=== PATIENT | female | born 1975 | race Hispanic/Latino ===

== ENCOUNTER 2016-07-14 04:47 | Emergency (ER) | payer OTHER ==
[2016-07-14 04:49] VITALS: BMI 33.6
--- NOTE | 2016-07-14 05:01 | ED PDOC ---
Arrival/HPI - General Chief Complaint: Chest Pain Time Seen by Provider: 07/14/16 04:48 Historian: Patient - History of Present Illness Narrative History of Present Illness (Text): 07/14/16 05:01 Marycarmen Huitron is a 41 year old female smoker, whose past medical history includes hypertension, hyperlipidmia, and diabetes, who presents to the Emergency department complaining of left-sided chest pain tonight. Patient describes chest pain as a heaviness/pressure-like sensation. Patient reports a family history of CAD. Patient denies any fever, chills, shortness of breath, nausea, vomiting, diarrhea, urinary symptoms, back pain, neck pain, headache, dizziness, or any other complaints. Symptom Onset: Gradual Symptom Course: Unchanged Activities at Onset: Rest, Light Context: Home Past Medical History - Provider Review Nursing Documentation Reviewed: Yes - Infectious Disease Hx of Infectious Diseases: None - Tetanus Immunization Tetanus Immunization: Unknown - Cardiac Hx Hypertension: Yes - Endocrine/Metabolic Hx Diabetes Mellitus Type 2: Yes - Psychiatric Hx Depression: Yes Hx Emotional Abuse: No Hx Physical Abuse: No Hx Substance Use: Yes - Surgical History Hx Cholecystectomy: Yes Other/Comment: abdominoplasty - Anesthesia Hx Anesthesia: Yes Hx Anesthesia Reactions: No Hx Malignant Hyperthermia: No - Suicidal Assessment Feels Threatened In Home Enviroment: No Family/Social History - Physician Review Nursing Documentation Reviewed: Yes Family/Social History: CAD/RI Smoking Status: Light Smoker < 10 Cigarettes Daily Hx Alcohol Use: No Hx Substance Use: Yes Substance used: marijuana - last used 07/13/2016 Hx Substance Use Treatment: No Allergies/Home Meds Allergies/Adverse Reactions: Allergies No Known Allergies Allergy (Verified 02/08/13 12:56) Review of Systems - Physician Review All systems were reviewed & negative as marked: Yes - Review of Systems Constitutional: Normal. absent: Fevers Eyes: Normal ENT: Normal Respiratory: Normal. absent: SOB, Cough Cardiovascular: Chest Pain Gastrointestinal: Normal. absent: Abdominal Pain, Diarrhea, Nausea, Vomiting Genitourinary Female: Normal. absent: Dysuria, Frequency, Hematuria, Urine Output Changes Musculoskeletal: Normal. absent: Back Pain, Neck Pain Skin: Normal. absent: Rash Neurological: Normal. absent: Headache, Dizziness Endocrine: Normal Hemo/Lymphatic: Normal Psychiatric: Normal Physical Exam Vital Signs Reviewed: Yes Vital Signs Temp Pulse Resp BP Pulse Ox 07/14/16 04:47 98.1 F 54 L 18 147/79 98 Temperature: Afebrile Blood Pressure: Normal Pulse: Regular Respiratory Rate: Normal Appearance: Positive for: Well-Appearing, Non-Toxic, Comfortable Pain Distress: None Mental Status: Positive for: Alert and Oriented X 3 - Systems Exam Head: Present: Atraumatic, Normocephalic Pupils: Present: PERRL Extroacular Muscles: Present: EOMI Conjunctiva: Present: Normal Mouth: Present: Moist Mucous Membranes Neck: Present: Normal Range of Motion Respiratory/Chest: Present: Clear to Auscultation, Good Air Exchange. No: Respiratory Distress, Accessory Muscle Use Cardiovascular: Present: Regular Rate and Rhythm, Normal S1, S2. No: Murmurs Abdomen: Present: Normal Bowel Sounds. No: Tenderness, Distention, Peritoneal Signs Back: Present: Normal Inspection Upper Extremity: Present: Normal Inspection. No: Cyanosis, Edema Lower Extremity: Present: Normal Inspection. No: Edema Neurological: Present: GCS=15, CN II-XII Intact, Speech Normal Skin: Present: Warm, Dry, Normal Color. No: Rashes Psychiatric: Present: Alert, Oriented x 3, Normal Insight, Normal Concentration Medical Decision Making ED Course and Treatment: 07/14/16 05:01 Impression: 41 year old female complaining of left-sided chest pain tonight. Plan: -- EKG -- Chest X-ray -- Labs, cardiac enzymes -- Aspirin -- Reassess and disposition Progress Notes: Reviewed EKG, sinus bradycardia at [address]-segment elevations or depressions, no T-wave inversions, normal intervals. 07/14/16 06:44 Reviewed radiology, Chest X-ray shows no acute processes. Case discussed with Dr. Kaye, who is aware and agrees with plan. Accepts pt in to his service. Pt will go to Telemetry observation for chest pain. Requests Dr. Bass on consult. - Lab Interpretations Lab Results: 07/14/16 05:20 07/14/16 05:20 Lab Results 07/14/16 05:20: PT 10.8, INR 1.00, APTT 27.1 07/14/16 05:20: WBC 7.7, RBC 3.94, Hgb 11.8 L, Hct 34.2 L, MCV 86.8, MCH 29.9, MCHC 34.5, RDW 12.5, Plt Count 214, MPV 11.9 H 07/14/16 05:20: Sodium 138, Potassium 4.3, Chloride 106, Carbon Dioxide 24, Anion Gap 12, BUN 8, Creatinine 0.6, Est GFR ( Amer) > 60, Est GFR (Non- Af Amer) > 60, Random Glucose 183 H, Calcium 9.4, Total Bilirubin 0.4, AST 21, ALT 29, Alkaline Phosphatase 48, Lactate Dehydrogenase 288 L, Total Creatine Kinase 38, Troponin I < 0.01, Total Protein 7.2, Albumin 4.1, Globulin 3.1, Albumin/Globulin Ratio 1.3 I have reviewed the lab results: Yes - RAD Interpretation Radiology Orders: 07/14/16 05:03 CHEST PORTABLE [RAD] Stat - EKG Interpretation Interpreted by ED Physician: Yes Type: 12 lead EKG - Medication Orders Current Medication Orders: Discontinued Medications Aspirin (Aspirin) 325 mg PO ONCE STA Stop: 07/14/16 05:05 Last Admin: 07/14/16 05:00 Dose: 325 mg - Scribe Statement The provider has reviewed the documentation as recorded by the Scribtheresa Franklin All medical record entries made by the Xochitlibtheresa were at my direction and personally dictated by me. I have reviewed the chart and agree that the record accurately reflects my personal performance of the history, physical exam, medical decision making, and the department course for this patient. I have also personally directed, reviewed, and agree with the discharge instructions and disposition. Disposition/Present on Arrival - Present on Arrival Any Indicators Present on Arrival: No History of DVT/PE: No History of Uncontrolled Diabetes: No Urinary Catheter: No History of Decub. Ulcer: No History Surgical Site Infection Following: None - Disposition Have Diagnosis and Disposition been Completed?: Yes Diagnosis: Chest pain Disposition: HOSPITALIZED Disposition Time: 06:48 Patient Plan: Observation Patient Problems: Current Active Problems Problem Status Onset Chest pain Acute Condition: STABLE Discharge Instructions (ExitCare): Chest Pain (ED) Referrals: Herman Kaye DO [Primary Care Provider] - Follow up with primary
[2016-07-14 05:31] VITALS: RESP 18; O2SAT 98
[2016-07-14 05:43] LABS: HEMATOCRIT 34.2 % (36.0-48.0); MEAN CELL VOLUME 86.8 fL (80.0-105.0); MEAN CORPUSCULAR HEMOGLOBIN 29.9 pg (25.0-35.0); MEAN CORPUSCULAR HGB CONC 34.5 g/dl (31.0-37.0); MEAN PLATELET VOLUME 11.9 fl (7.0-11.0); RED CELL DISTRIBUTION WIDTH 12.5 % (11.5-14.5); WHITE BLOOD COUNT 7.7 10^3/ul (4.5-11.0)
[2016-07-14 05:44] LABS: PARTIAL THROMBOPLASTIN TIME 27.1 Seconds (23.7-30.8)
[2016-07-14 05:47] LABS: ALB/GLOB RATIO 1.3 (1.1-1.8); ALKALINE PHOSPHATASE 48 U/L (38-133); ALT/SGPT 29 U/L (7-56); AST/SGOT 21 U/L (15-39); BILIRUBIN,TOTAL 0.4 mg/dL (0.2-1.3); BLOOD UREA NITROGEN 8 mg/dL (7-21); CALCIUM 9.4 mg/dL (8.4-10.5); CARBON DIOXIDE 24 mmol/L (21-33); CHLORIDE 106 mmol/L (98-107); GFR AFRICAN-AMERICAN > 60; GLUCOSE,RANDOM 183 mg/dL (70-110); POTASSIUM 4.3 mmol/L (3.6-5.0); SODIUM 138 mmol/L (132-148); TOTAL PROTEIN 7.2 g/dL (5.8-8.3)
[2016-07-14 05:58] LABS: TROPONIN I < 0.01 ng/mL
[2016-07-14 07:55] VITALS: BP 124/77; PULSE 53; TEMP 97
--- NOTE | 2016-07-14 08:11 | CP.PCM.PN ---
Subjective - Date & Time of Evaluation Date of Evaluation: 07/14/16 Time of Evaluation: 08:08 - Subjective Subjective: pt with hx of htn and smoking was admitted for cp , wants to sign AMA. PT STATES SHE WILL GO TO HER [employer]LECT[employer]. Objective - Vital Signs/Intake and Output Vital Signs (last 24 hours): Temp Pulse Resp BP Pulse Ox 97 F L 53 L 18 124/77 98 07/14/16 07:00 07/14/16 07:00 07/14/16 07:00 07/14/16 07:00 07/14/16 07:00 - Medications Medications: Current Medications Insulin Human Regular (Humulin R Med) 0 units SC ACHS SUZY PRN Reason: Protocol - Labs Labs: PT 10.8 Seconds (9.9-11.8) 07/14/16 05:20 INR 1.00 (0.93-1.08) 07/14/16 05:20 APTT 27.1 Seconds (23.7-30.8) 07/14/16 05:20 - Constitutional Appears: No Acute Distress - Head Exam Head Exam: NORMOCEPHALIC - Eye Exam Eye Exam: Normal appearance Pupil Exam: PERRL - ENT Exam ENT Exam: Mucous Membranes Moist - Neck Exam Neck Exam: Full ROM - Respiratory Exam Respiratory Exam: Clear to Ausculation Bilateral, NORMAL BREATHING PATTERN - Cardiovascular Exam Cardiovascular Exam: RRR, +S1, +S2 - GI/Abdominal Exam GI & Abdominal Exam: Normal Bowel Sounds - Rectal Exam Rectal Exam: Deferred - Extremities Exam Extremities Exam: Full ROM - Neurological Exam Neurological Exam: Alert, CN II-XII Intact, Oriented x3 - Psychiatric Exam Psychiatric exam: Normal Affect - Skin Skin Exam: Dry, Warm Assessment and Plan - Assessment and Plan (Free Text) Assessment: AMA. CP/HX OF htn. Plan: risk of recurrent cp and explained to pt.
--- NOTE | 2016-07-14 08:21 | RAD ---
PROCEDURE: CHEST RADIOGRAPH, 1 VIEW HISTORY: pain COMPARISON: None available. FINDINGS: LUNGS: Clear. PLEURA: No pneumothorax or pleural fluid seen. CARDIOVASCULAR: Normal. OSSEOUS STRUCTURES: No significant abnormalities. VISUALIZED UPPER ABDOMEN: Normal. OTHER FINDINGS: None. IMPRESSION: No active disease.
[2016-07-14] MEDS ORDERED: Insulin Reg-MEDIUM-Coverage SC SCH (11:30)
--- NOTE | 2016-07-14 12:15 | HP ---
I was called down to the Emergency Room this morning by the ER doctor. She comes in with left-sided chest pain. She is a 41-year-old female who I know very well who had quit smoking, who is now back o n smoking, who now tells me she stopped all her medications and went on a vegetarian diet and thought that would take care of her. She has chest pain, heaviness, pressure-like sensation. At this time, when I am seeing her, that is gone. No shortness of breath. The medicine they gave her helped, she stated, but she is back to smoking and stopped all her medication for blood pressure and high choles terol and diabetes. PAST MEDICAL HISTORY: Includes hypertension, type 2 diabetes. She has had depression in the past, h istory of substance abuse. She has had abdominoplasty in the past, a cholecystectomy. There is coronary artery disease and myocardial infarctions in the family. Now, she is back to [employer] again. No alcohol. She is using marijuana also. She used it yesterday. ALLERGIES: No known drug allergies. She does not remember the medicine. I think one of them was metoprolol. REVIEW OF SYSTEMS: No acute vision changes, no hearing changes, no sore throat, no neck pain, no jane rtness of breath, no cough. There is chest pain, pressure on the left side, which is new and scared her. That is why she came to the Emergency Room. No abdominal pain, diarrhea, nausea, vomiting. No problems urinating. No back pain. No skin rashes. No headache or dizziness. No sweating, no ligh theadedness, no numbness or tingling. PHYSICAL EXAMINATION: VITAL SIGNS: She has a 98.1 temp, 54 pulse, 18 respiratory rate, 147/79 blood pressure, 98% O2 sat o n room air. HEENT: Head is atraumatic, normocephalic. Extraocular muscles are intact. Pupils equal, reactive t o light and accommodation. Throat is moist. GENERAL: She is alert and oriented x 3, well appearing, nontoxic, comfortable. NECK: Supple. HEART: Regular rate. Normal S1, S2. LUNGS: Have decreased breath sounds, but clear to auscultation, good exchange, good effort. EXTREMITIES: Have no edema. NEUROLOGIC: GCS is 15. Cranial nerves II-XII grossly intact. SKIN: Intact. No rashes or breakdown. LYMPHATIC: Thyroid midline. No palpable appreciable lymphadenopathy. LABORATORY TESTS: She has a 138 sodium, potassium 4.3, BUN 8, creatinine 0.6, GFR is greater than 60 , sugar is 183. I will put her on some insulin coverage. She stopped her diabetes medication. Calc ium is 9.4, AST is 21, ALT is 29, alk phos is 48. Troponin is less than 0.01. Total protein 7.2, al bumin is 3.1. There is a chest x-ray pending. There is a CBC and an INR. She is here for chest pain. I will put her on oxygen, insulin coverage, cardiology consult. We will get 2 more troponins. She will be in o bservation status. She is a smoker, noncompliant with her blood pressure medications and her diabete s medications. I will call in cardiology. She might need a catheterization, at least a stress test and she is being admitted for chest pain, observation, rule out myocardial infarction. Herman Kaye DO cc: [id number] TT: 07/14/2016 12:14:40 en
--- NOTE | 2016-07-14 12:16 | HP ---
ADDENDUM LABORATORIES: She has a 7.7 white count, 11.8 hemoglobin, 34.2 hematocrit with 214 platelets. INR i s 1. She is here for chest pain. Chest x-ray is pending. She is a smoker. She stopped her medications. She is noncompliant. She is smoking marijuana. She is going to be here for q. 8 hour troponins x 2 more, cardiology evaluation and hopefully she will get a stress test or a catheterization in the nex t 24 hours. I put her on oxygen, insulin coverage. Herman Kaye DO cc: [id number] TT: 07/14/2016 12:16:02 en
--- NOTE | 2016-07-14 18:52 | CARD ---
APPROVED REPORT EKG Measurement Heart [id number] <Conclusion> Sinus bradycardia Otherwise normal ECG
== END 2016-07-14 08:06 | disposition left against medical advice (07) ==
LOC: ED 04:47 → UNDOADMOB 06:44 → ERH 06:44 → UNDODISOB 08:21
DX: R07.9 Chest pain, unspecified (principal); I10 Essential (primary) hypertension; E78.5 Hyperlipidemia, unspecified; Z72.0 Tobacco use